=== PATIENT | female | born 2005 | race Two or more races ===

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

== ENCOUNTER 2023-11-07 19:35 | Emergency (ER) | payer MEDICAID ==
[~2023-11-07] VITALS: Ht 172.7 cm; Wt 98.3 kg
[~2023-11-07 19:35] MED LIST changes: +ACET500T58 PO; +IBUP-1455 PO; +LORA-483 GT
[2023-11-07 19:47] VITALS: BP 135/88; PULSE 91; TEMP 98.2
[2023-11-07] MEDS ORDERED: BENZ200C64 PO (20:46)
[2023-11-07] MEDS ORDERED: ALBU108A5 IN (20:46)
[2023-11-07] MEDS ORDERED: PRED20TA2 PO (20:46)
[2023-11-07] MEDS ORDERED: AZITTAB PO (20:46)
[2023-11-07] MEDS: IPRATROPIUM BROM 0.5 MG/2.5ML INH SOL NEB ONE (21:10)
[2023-11-07] MEDS: ALBUTEROL SULF 2.5 MG/0.5ML(0.5%) NEB SOLN NEB ONE (21:10)
[2023-11-07] MEDS: DexAMETHasone SOD PHOS 10MG/1ML VIAL INJ IM ONE (21:14)
[2023-11-07 21:21] VITALS: RESP 20; O2SAT 98
== END 2023-11-07 21:22 | disposition home or self-care (01) ==
LOC: ER 19:35
DX: J45.909 Unspecified asthma, uncomplicated (principal)
CPT/HCPCS: 94640; 96372; 99283; J1100; J7644

== ENCOUNTER 2023-11-13 18:25 | Emergency (ER) | payer MEDICAID ==
[~2023-11-13] VITALS: Ht 172.7 cm; Wt 98.9 kg
[~2023-11-13 18:25] MED LIST changes: +ALBU108A5 IN; +AZITTAB PO; +BENZ200C64 PO
[2023-11-13 19:19] LABS: Basophils # (auto) 0.1 10 ^3/uL (0-0.2); Basophils % (auto) 1.1 % (0.0-2.0); Eosinophils # (auto) 0.6 10 ^3/uL (0-0.8); Eosinophils % (auto) 6.3 % (0.0-7.0); Hematocrit 45.2 % (36.0-46.0); Hemoglobin 15.2 g/dL (12.2-16.2); Lymphocytes # (auto) 2.7 10 ^3/uL (0.4-5.4); Lymphocytes % (auto) 27.2 % (10.0-50.0); Mean Corpuscular Hemoglobin 30.2 pg (28.0-32.0); Mean Corpuscular Hgb Conc. 33.7 g/dL (32.0-36.0); Mean Corpuscular Volume 89.5 fL (80.0-100.0); Monocytes # (auto) 0.8 10 ^3/uL (0-1.3); Neutrophils # (auto) 5.7 10 ^3/uL (1.6-8.6); Neutrophils % (auto) 57.4 % (37.0-80.0); Nucleated Red Blood Cells % 0.1 %; Red Blood Cells 5.05 10^6/uL (4.0-5.20); Red Cell Distribution Width 13.1 % (11.8-14.3); White Blood Cell 9.9 10^3/uL (4.4-10.8)
[2023-11-13 19:23] LABS: Urine Bacteria FEW /hpf (None Seen); Urine Blood Negative /uL (Negative); Urine Clarity HAZY (Clear); Urine Color Colorless (Yellow); Urine Protein, UAD Negative (Negative); Urine Specific Gravity 1.007 (1.001-1.035); Urine Urobilinogen Normal (Negative); Urine WBC 5 /hpf (0 - 5); Urine pH 7.5 (5.0-8.0)
[2023-11-13 19:34] LABS: INR 0.94 (0.9-1.15); Partial Thromboplastin Time 28.5 SEC (24.5-34.5); Prothrombin Time 9.9 sec (9.3-11.8)
[2023-11-13 19:49] LABS: Alanine Aminotransferase 38 U/L (7-40); Albumin 4.8 g/dL (3.2-4.8); Alkaline Phosphatase 84 U/L (46-116); Anion Gap 7 (5-15); Aspartate Aminotransferase 18 U/L (13-40); BUN/Creatinine Ratio 9.9 (10.0-20.0); Bilirubin, Total 0.5 mg/dL (0.2-1.0); Blood Urea Nitrogen 7 mg/dL (9-23); Calcium 9.8 mg/dL (8.7-10.4); Carbon Dioxide 24 mmol/L (20-30); Chloride 108 mmol/L (98-107); Glucose 103 mg/dL (74-106); Potassium 3.9 mmol/L (3.5-5.1); Sodium 139 mmol/L (136-145); Total Protein 7.5 g/dL (5.7-8.2)
[2023-11-13 21:45] VITALS: BP 139/94; PULSE 98; RESP 18; TEMP 98.6; O2SAT 98
== END 2023-11-13 22:16 | disposition home or self-care (01) ==
LOC: ER 18:25
DX: R07.89 Other chest pain (principal); R00.0 Tachycardia, unspecified; J45.909 Unspecified asthma, uncomplicated; Z79.1 Long term (current) use of non-steroidal anti-inflammatories (NSAID); Z79.899 Other long term (current) drug therapy
CPT/HCPCS: 36415; 71045; 80053; 81001; 83735; 83880; 84484; 85025; 85379; 85610; 85730; 93005

== ENCOUNTER 2024-08-03 04:58 | Emergency (ER) | payer MEDICAID | END 2024-08-03 04:59 | disposition left against medical advice (07) | LOC: ER 04:58 | DX: H57.12 Ocular pain, left eye (principal); Z53.21 Procedure and treatment not carried out due to patient leaving prior to being seen by health care provider ==

== ENCOUNTER 2024-09-10 10:05 | Emergency (ER) | payer MEDICAID ==
[~2024-09-10] VITALS: Ht 172.7 cm; Wt 104.3 kg
[2024-09-10 10:51] LABS: Urine Bacteria None Seen /hpf (None Seen); Urine WBC None Seen /hpf (0 - 5)
--- NOTE | 2024-09-10 10:54 | DVH ---
OB ULTRASOUND <14 WEEKS: HISTORY: vag bleed TECHNIQUE: Multiple real-time grayscale sonographic images of the pelvis with duplex Doppler color f low, spectral and M-mode analysis. TRANSDUCERS: Transabdominal FINDINGS: The uterus measures 10.0 x 0.6 x 6.0 The cervix is not well-visualized The bilateral ovaries are nonvisualized. IUP single live fetus at 9 weeks 6 days average ultrasound age based on mean crown-rump length of 3.3 6 cm and gestational sac size of 4.07 cm heart rate detected at 172 beats per minute. Yolk sac is present. Amniotic fluid subjectively within normal limits Angelina-gestational space: Crescentic hypoechoic structure adjacent to the gestational sac measuring 2.3 x 1.0 x 2.0 cm. IMPRESSION: 1. IUP single live fetus 9 weeks 6 days AUA corresponding to an MARTI of 04/09/2025. 2. Subchorionic hemorrhage measuring up to 2.3 cm. HS:Y
[2024-09-10 11:00] LABS: Basophils # (auto) 0.1 10 ^3/uL (0-0.2); Basophils % (auto) 1.1 % (0.0-2.0); Eosinophils # (auto) 0.7 10 ^3/uL (0-0.8); Eosinophils % (auto) 6.7 % (0.0-7.0); Hematocrit 40.4 % (36.0-46.0); Hemoglobin 13.8 g/dL (12.2-16.2); Lymphocytes # (auto) 1.8 10 ^3/uL (0.4-5.4); Lymphocytes % (auto) 18.3 % (10.0-50.0); Mean Corpuscular Hemoglobin 30.5 pg (28.0-32.0); Mean Corpuscular Hgb Conc. 34.2 g/dL (32.0-36.0); Mean Corpuscular Volume 89.1 fL (80.0-100.0); Monocytes # (auto) 0.9 10 ^3/uL (0-1.3); Monocytes % (auto) 8.8 % (0.0-12.0); Neutrophils # (auto) 6.5 10 ^3/uL (1.6-8.6); Neutrophils % (auto) 65.1 % (37.0-80.0); Platelet Count (auto) 326 10^3/uL (140-450); Red Blood Cells 4.53 10^6/uL (4.0-5.20); Red Cell Distribution Width 13.2 % (11.8-14.3); White Blood Cell 9.9 10^3/uL (4.4-10.8)
[2024-09-10 11:17] LABS: Alanine Aminotransferase 22 U/L (7-40); Albumin 4.6 g/dL (3.2-4.8); Alkaline Phosphatase 64 U/L (46-116); Anion Gap 6 (5-15); Aspartate Aminotransferase 15 U/L (13-40); BUN/Creatinine Ratio 11.1 (10.0-20.0); Calcium 10.3 mg/dL (8.7-10.4); Carbon Dioxide 25 mmol/L (20-31); Chloride 107 mmol/L (98-107); Glucose 85 mg/dL (74-106); Potassium 3.7 mmol/L (3.5-5.1); Sodium 138 mmol/L (136-145)
[2024-09-10 11:18] LABS: Total Protein 7.4 g/dL (5.7-8.2)
[2024-09-10 11:20] LABS: Blood Urea Nitrogen 8 mg/dL (9-23)
[2024-09-10 11:24] LABS: Urine Blood TRACE /uL (Negative); Urine Clarity Clear (Clear); Urine Color Light-Yellow (Yellow); Urine Mucus FEW (None Seen); Urine Protein, UAD Negative (Negative); Urine Specific Gravity 1.024 (1.001-1.035); Urine Urobilinogen Normal (Negative)
[2024-09-10 11:53] LABS: Bilirubin, Total 0.3 mg/dL (0.2-1.0)
--- NOTE | 2024-09-10 12:01 | ED.PDOC ---
MANAGER BEVERAGE HPI Comments HPI: 19y F who presents to the ED for chief complaint of vaginal bleeding. Pt presents to the ED with the following complaints: -pt has been having lower pelvic cramping for the past 4 days -pt called OB who states she was told to come to ED if pt started to have brown or red discharge -pt states today when wiping, she noticed brown discharge and came to the ED- -pt in ED states she is , M1, currently 10 weeks dated per OB ultrasound performed 10 weeks prior, with noted 1 prior 1 miscarriage occurring at approx 6 weeks - pt states last pap smear was performed in December 2023 and states it was normal, pt denies any history of STD's - Pt in the ED, rates the pelvic 02/05, with pain located diffusely in the suprapubic area, with no associated exacerbating or relieving factors VITALS: Temp: 97.0F RR: 15 02 sat : 98% on room air HR: 120 BP: 134/94 PMH: asthma PSH: tonsillectomy Social history: denies tobacco use, denies ETOH use, denies drug use Medications: denies Allergies: nkda Chief Complaint: Vaginal Bleed Time Seen by MD: 11:58 Reviewed Notes: Allergies Allergies: Coded Allergies: NO KNOWN ALLERGIES (Unverified , 12/03/19) Home Meds Active Scripts Benzonatate (Benzonatate) 200 Mg Cap, 1 CAP PO TID, #30 CAP as needed for cough Prov:BRANDON LOPEZALDA Q KNUCKLE BENDER 11/07/23 Albuterol Sulfate (Albuterol Sulfate Hfa) 108 Mcg/Act Aer, 1 PUFF IN Q4HPRN PRN, #1 INH as needed for cough congestion shortness of breath or wheezing Prov:BRANDON LOPEZALDA Q KNUCKLE BENDER 11/07/23 Prednisone (Prednisone) 20 Mg Tab, 1 TAB PO BID for 5 Days, #10 TAB start tomorrow take it with foods Prov:JOHNNORALDA Q KNUCKLE BENDER 11/07/23 Azithromycin (Zithromax Z-[place]) 250 Mg Tab, 1 CAP PO DAILY for 5 Days, #6 TAB 2 tabs today then 1 tablet start tomorrow for 4 days Prov:JOHNNORALDA Q KNUCKLE BENDER 11/07/23 Loratadine (CLARITIN TABLET) 10 Mg Tb, 10 MG GT DAILY for 10 Days, #10 TAB Prov:MARGOT EMERY PAC 11/04/22 Ibuprofen Micronized (Ibuprofen) 800 Mg Tab, 800 MG PO TIDP PRN, #30 TAB Prov:MARGOT EMERY PAC 11/04/22 Acetaminophen (Acetaminophen) 500 Mg Tab, 500 MG PO Q4HPRN PRN, #30 TAB Prov:MARGOT EMERY PAC 11/04/22 Cetirizine HCl (Eql All Day Allergy) 10 Mg Tab, 10 MG PO DAILY PRN, #30 TAB 0 Refills Prov:ELZA CORNEJO 07/28/22 Prednisone (Prednisone) 20 Mg Tab, 20 MG PO BID for 5 Days, #10 MG 0 Refills Prov:ELZA CORNEJO 07/28/22 Information Source: Patient Mode of Arrival: Ambulatory Past Medical History PAST MEDICAL HISTORY: Asthma Surgical History: Denies all surgeries SUPERINTENDENT OPERATING History: No Pertinent SUPERINTENDENT OPERATING History Family History Family History: Unknown Social History Smoker: Non-Smoker Alcohol: Denies ETOH Use Drugs: Denies Drug Use Lives In: Home Was a procedure done? Was a procedure done?: No X-Ray, Labs, Meds, VS Vital Signs Date Time Temp Pulse Resp B/P (MAP) Pulse Ox O2 Delivery O2 Flow Rate FiO2 09/10/24 10:12 97.0 120 15 134/94 (107) 98 Lab Test 09/10/24 10:42 09/10/24 10:25 Range/Units White Blood Count 9.9 4.4-10.8 10^3/uL Red Blood Count 4.53 4.0-5.20 10^6/uL Hemoglobin 13.8 12.2-16.2 g/dL Hematocrit 40.4 36.0-46.0 % Mean Corpuscular Volume 89.1 80.0-100.0 fL Mean Corpuscular Hemoglobin 30.5 28.0-32.0 pg Mean Corpuscular Hemoglobin Concent 34.2 32.0-36.0 g/dL Red Cell Distribution Width 13.2 11.8-14.3 % Platelet Count 326 140-450 10^3/uL Mean Platelet Volume 8.1 6.9-10.8 fL Neutrophils (%) (Auto) 65.1 37.0-80.0 % Lymphocytes (%) (Auto) 18.3 10.0-50.0 % Monocytes (%) (Auto) 8.8 0.0-12.0 % Eosinophils (%) (Auto) 6.7 0.0-7.0 % Basophils (%) (Auto) 1.1 0.0-2.0 % Neutrophils # (Auto) 6.5 1.6-8.6 10 ^3/uL Lymphocytes # (Auto) 1.8 0.4-5.4 10 ^3/uL Monocytes # (Auto) 0.9 0-1.3 10 ^3/uL Eosinophils # (Auto) 0.7 0-0.8 10 ^3/uL Basophils # (Auto) 0.1 0-0.2 10 ^3/uL Nucleated Red Blood Cells 0.0 % Sodium Level 138 136-145 mmol/L Potassium Level 3.7 3.5-5.1 mmol/L Chloride Level 107 98-107 mmol/L Carbon Dioxide Level 25 20-31 mmol/L Anion Gap 6 5-15 Blood Urea Nitrogen 8 L 9-23 mg/dL Creatinine 0.72 0.550-1.02 mg/dL Glomerular Filtration Rate Calc 122 >90 mL/min BUN/Creatinine Ratio 11.1 10.0-20.0 Serum Glucose 85 74-106 mg/dL Calcium Level 10.3 8.7-10.4 mg/dL Total Bilirubin 0.3 0.2-1.0 mg/dL Aspartate Amino Transferase (AST) 15 13-40 U/L Alanine Aminotransferase (ALT) 22 7-40 U/L Alkaline Phosphatase 64 46-116 U/L Total Protein 7.4 5.7-8.2 g/dL Albumin 4.6 3.2-4.8 g/dL Beta HCG, Quantitative 64154.1 H 1.5-4.2 mIU/mL Urine Color Light-yellow Yellow Urine Clarity Clear Clear Urine pH 6.0 5.0-9.0 Urine Specific [place] 1.024 1.001-1.035 Urine Protein Negative Negative Urine Ketones Negative Negative Urine Blood Trace H Negative /uL Urine Nitrite Negative Negative Urine Bilirubin Negative Negative Urine Urobilinogen Normal Negative mg/dL Urine Leukocyte Esterase Negative Negative /uL Urine RBC None seen 0 - 4 /hpf Urine WBC None seen 0 - 5 /hpf Urine Squamous Epithelial Cells Mod <5 /hpf Urine Bacteria None seen None Seen /hpf Urine Mucus Few None Seen Urine Glucose Normal Normal mg/dL Chlamydia trachomatis (JEANETTE) Pending Neisseria gonorrhoeae (JEANETTE) Pending [facility] [id number] [facility] [id number] Ph: [phone] DIAGNOSTIC IMAGING Diagnostic Imaging Report : [id number] Signed PATIENT: MIGUEL WOMACK ACCT: [id number] UNIT: [id number] : 2005 LOC: ER ROOM / BED: / AGE / SEX: 19 / F ADM STATUS: REG ER SERVICE 1021 ORDERING PHYSICIAN: TAMIKO SANTIAGO DO PROCEDURE(s): OB4US - OB ULTRASOUND COMP LESS 14WKS REASON: vag bleed ORDER NUMBER(s): [id number], ACCESSION NUMBER(s): [id number] OB ULTRASOUND <14 WEEKS: HISTORY: vag bleed TECHNIQUE: Multiple real-time grayscale sonographic images of the pelvis with duplex Doppler color flow, spectral and M-mode analysis. TRANSDUCERS: Transabdominal FINDINGS: The uterus measures 10.0 x 0.6 x 6.0 The cervix is not well-visualized The bilateral ovaries are nonvisualized. IUP single live fetus at 9 weeks 6 days average ultrasound age based on mean crown-rump length of 3.36 cm and gestational sac size of 4.07 cm heart rate detected at 172 beats per minute. Yolk sac is present. Amniotic fluid subjectively within normal limits Angelina-gestational space: Crescentic hypoechoic structure adjacent to the gestational sac measuring 2.3 x 1.0 x 2.0 cm. IMPRESSION: 1. IUP single live fetus 9 weeks 6 days AUA corresponding to an MARTI of 04/09/2025. 2. Subchorionic hemorrhage measuring up to 2.3 cm. HS:Y ATED BY: GRADY CORDOBA DO DICTATED DATE/TIME: 09/10/241051 SIGNED BY: GRADY CORDOBA DO SIGNED DATE/TIME: 09/10/241051 CC: Time of 1ST Reevaluation: 14:00 Reevaluation 1ST: Stable Time of 2ND Reevaluation: 14:55 (We discussed pelvic exam and swabs. Patient was offered vaginal swabs however she said she wants her OB Gyne doctor to do it in the next few days. She declined any swabs in the ED today.) Patient Education/Counseling: Diagnosis, Treatment Family Education/Counseling: No Family Present Comments GC chlamydia results are send out at are not available today. Additional Information Patient presented with the above HPI.---vaginal bleeding---workup was initiated. patient was found with the above mentioned diagnosis. the following medications were ordered: none the following tests were ordered: chlamydia/GC, OB ultrasound, UA, Beta HcG, CBC, CMP, Patient ED course and VS have been stabilized. Patient has been reassessed in the ED and remained in a stable condition. Patient has been observed in the ED adequate length of time to insure improvement/stability. Escalation of care considered: Consideration of escalation to observation or admission. Departure 1 Departure Time of Disposition: 13:56 Impression: Primary Impression: Vaginal discharge during Additional Impressions: Abdominal cramping affecting Subchorionic hemorrhage Intrauterine Disposition: HOME / SELF CARE / HOMELESS Condition: Stable Additional Instructions: Additional discharge instructions: You MUST follow-up with your primary care/family doctor in 1 to 2 days. If you are unable to see your primary care/family doctor, please return to our e mergency room for re-assessment and re-evaluation in 1 to 2 days. Return to the emergency room here in our facility or to the nearest ER [facility] if your symptoms change or worsen. CONSULTATIONS: you MUST Follow-up for consultation as soon as possible with: Dr. WOOD grace in 1-2 days. You MUST call the consultants office yourself to make an appointment. You may need to arrange that through your insurance and/or your primary/family doctor. If you are unable to see the internet consultant in 1 to 2 days, you must return to our emergency room (or any other ER of your choice) for re-assessment and re- evaluation. Adequate fluid hydration. Repeat beta-hCG levels in 48-72 hours. Repeat pelvic ultrasound in one week. Absolute [place] [address]. Below is a copy of your radiological report for follow up: [facility] [id number] [place] [id number] Ph: [phone] DIAGNOSTIC IMAGING Diagnostic Imaging Report : [id number] Signed PATIENT: MIGUEL WOMACK ACCT: [id number] UNIT: [id number] : 2005 LOC: ER ROOM / BED: / AGE / SEX: 19 / F ADM STATUS: REG ER SERVICE 1021 ORDERING PHYSICIAN: TAMIKO SANTIAGO DO PROCEDURE(s): OB4US - OB ULTRASOUND COMP LESS 14WKS REASON: vag bleed ORDER NUMBER(s): [id number], ACCESSION NUMBER(s): [id number] OB ULTRASOUND <14 WEEKS: HISTORY: vag bleed TECHNIQUE: Multiple real-time grayscale sonographic images of the pelvis with duplex Doppler color flow, spectral and M-mode analysis. TRANSDUCERS: Transabdominal FINDINGS: The uterus measures 10.0 x 0.6 x 6.0 The cervix is not well-visualized The bilateral ovaries are nonvisualized. IUP single live fetus at 9 weeks 6 days average ultrasound age based on mean crown-rump length of 3.36 cm and gestational sac size of 4.07 cm heart rate detected at 172 beats per minute. Yolk sac is present. Amniotic fluid subjectively within normal limits Angelina-gestational space: Crescentic hypoechoic structure adjacent to the gestational sac measuring 2.3 x 1.0 x 2.0 cm. IMPRESSION: 1. IUP single live fetus 9 weeks 6 days AUA corresponding to an MARTI of 04/09/2025. 2. Subchorionic hemorrhage measuring up to 2.3 cm. HS:Y ATED BY: GRADY CORDOBA DO DICTATED DATE/TIME: 09/10/24 1052 SIGNED BY: GRADY CORDOBA DO SIGNED DATE/TIME: 09/10/24 1052 CC: Discharged With: Self Critical Care Note Critical Care Time?: No I personally scribed for TAMIKO SANTIAGO DO ([email or web address]) on 09/10/24 at 12:01. Electronically submitted by Americo Matthews ([email or web address]). I personally scribed for TAMIKO SANTIAGO DO ([email or web address]) on 09/10/24 at 12:09. Electronically submitted by Americo DONALDSON). TAMIKO SANTIAGO DO Sep 10, 2024 12:01
[2024-09-10 15:10] VITALS: BP 151/80; PULSE 93; RESP 18; TEMP 98; O2SAT 99
[2024-09-11 17:06] LABS: Chlamydia Trachomatis, NAA Negative (Negative); Neisseria gonorrhoeae, NAA Negative (Negative)
== END 2024-09-10 15:12 | disposition home or self-care (01) ==
LOC: ER 10:05
DX: O20.8 Other hemorrhage in early pregnancy (principal); R10.2 Pelvic and perineal pain; O99.511 Diseases of the respiratory system complicating pregnancy, first trimester; J45.909 Unspecified asthma, uncomplicated; Z79.52 Long term (current) use of systemic steroids; Z90.89 Acquired absence of other organs; Z3A.10 10 weeks gestation of pregnancy
CPT/HCPCS: 36415; 76801; 80053; 81001; 84702; 85025